=== PATIENT | female | born 1985 | race Caucasian/White ===

== ENCOUNTER 2018-07-30 03:07 | Emergency (ER) | payer OTHER, SELFPAY ==
--- NOTE | 2018-07-30 03:17 | DI.US.S_ITS ---
PROCEDURE: US PELVIC COMPLETE INDICATIONS: POSITIVE TEST; PAIN, BLEEDING TECHNIQUE: Real-time scanning was performed of the pelvic organs, with image documentation. Additional endovaginal scanning was necessary due to incomplete visualization of the adnexal and endometrial structures by transabdominal scanning. COMPARISON: None. FINDINGS: Transabdominal scanning: Limited scanning through the kidneys shows no hydronephrosis. No pathologic free abdominal or pelvic fluid. Endovaginal scanning: Uterus: Uterus is normal in size at 8.3 x 5.1 x 5.8 cm. The endometrium measures 9.2 mm in combined thickness. 1.6 mm anechoic area within the endometrium is noted and shows no internal vascularity. No discrete uterine fibroid is seen. Ovaries: Right ovary measures 2.8 x 2 x 2.1 cm in size. Left ovary measures 3.3 x 1.9 x 2 cm in size. No solid-appearing ovarian lesion. Normal blood flow is seen in bilateral ovaries on color Doppler images. IMPRESSION: 1. Normal appearing bilateral ovaries. 2. 1.6 mm anechoic area within the endometrium and is of unknown significance. Finding could represent tiny amount of fluid versus cyst. Dictated by: Marko Arana M.D. on 07/30/2018 at 10:40 Approved by: Marko Arana M.D. on 07/30/2018 at 10:42
[2018-07-30 03:20] VITALS: BP 165/116; PULSE 94; RESP 18; TEMP 37.2; O2SAT 100
--- NOTE | 2018-07-30 03:25 | ED.PREGNANCY ---
HPI - General Chief complaint: Vaginal Bleeding Stated complaint: 6 weeks , bleeding, pain thinks miscarry Time Seen by Provider: 07/30/18 03:08 Source: patient and family Mode of arrival: ambulatory Limitations: no limitations History of Present Illness HPI Narrative: 33-year-old female nonsmoker, otherwise healthy presents with her for evaluation lower abdominal cramping some vaginal bleeding. Patient is at 6 weeks by dates, with confirmation by [id number] her urine test. She denies any dizziness, weakness or lightheadedness. She has no chest pain or shortness of breath. She does have some lower discomfort and cramping with occasional pain in her left lower quadrant. Yesterday she started with some spotting that was largely old blood but bleeding picked up today as did the cramping in her lower abdomen. Prior to her arrival she bled through 1 liner. MD Complaint: abdominal pain and vaginal bleeding Onset (ago): hour(s) Pain Consistency: intermittent Location: pelvis Severity: moderate Quality: Aching and Cramping Radiation: pelvis Relieving factors: none Exacerbating factors: movement Associated symptoms: denies other symptoms Vaginal discharge: none Vaginal bleeding: heavy Patient : Yes Number of Weeks : 6 OB History - Current : no complications OB History - Previous Pregnancies: no complications care: none Related Data : 1 Para: 0 Home Medications Medication Instructions Recorded Confirmed PNV cmb#95-ferrous fumarate-FA 1 tab PO DAILY 07/30/18 07/30/18 [] Allergies Allergy/AdvReac Type Severity Reaction Status Date / Time No Known Drug Allergies Allergy Verified 07/30/18 03:24 Review of Systems Review of Systems ROS Unobtainable: All systems reviewed & are unremarkable except as noted in HPI and below Constitutional Denies chills, Denies fever(s), Denies lethargy and Denies weakness Eyes Denies change in vision, Denies eye discharge, Denies irritation and Denies loss of vision ENT Ears, Nose, Mouth, and Throat: Denies change in voice, Denies neck pain and Denies sore throat Cardiovascular Denies chest pain, Denies irregular heart rhythm, Denies lightheadedness, Denies palpitations, Denies dyspnea, Denies dyspnea on exertion and Denies orthopnea Respiratory Denies cough, Denies dyspnea, Denies dyspnea on exertion and Denies wheezing Gastrointestinal Gastrointestinal: Denies abdominal pain, Denies change in bowel habits, Denies diarrhea, Denies nausea and Denies vomiting Genitourinary Reports abnormal vaginal bleeding, Denies hematuria, Denies flank pain, Denies urinary incontinence and Denies urinary urgency Musculoskeletal Reports back pain and Denies neck pain Integumentary/Breasts Denies pruritus, Denies erythema, Denies rash and Denies wounds Neurologic Denies confusion, Denies loss of vision and Denies weakness Psychiatric Denies anxiety, Denies confusion, Denies depression, Denies homicidal ideation and Denies suicidal ideation Endocrine Denies palpitations Hematologic/Lymphatic Denies easy bruising Allergic/Immunologic Denies wheezing PMFSH - Past Medical History Medical history: Reports no medical history Surgical history: Reports no surgical history 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 Normocephalic. No temporal or scalp tenderness. EYES: Pupils equal round and reactive. Extraocular motions intact. No scleral icterus. No injection or drainage. ENT: Nose without bleeding, purulent drainage or septal hematoma. Throat without erythema, tonsillar hypertrophy or exudate. Uvula midline. Airway patent. NECK: Trachea midline. No JVD or lymphadenopathy. Supple, nontender, no meningeal signs. CARDIOVASCULAR: Regular rate and rhythm without murmurs, gallops, or rubs. RESPIRATORY: Clear to auscultation. Breath sounds equal bilaterally. No wheezes, rales, or rhonchi. GASTROINTESTINAL: Abdomen soft, non-tender, nondistended. No hepato-splenomegaly, or palpable masses. No guarding. EXTREMITIES: No clubbing, cyanosis, or edema. No joint tenderness, effusion, or edema noted. BACK: Nontender without deformity or crepitance. No flank tenderness. NEURO: AOx3. SKIN: No rash or erythema. Initial Vital Signs Initial Vital Signs: Vital Signs Temperature 99.0 F 07/30/18 03:20 Pulse Rate 94 H 07/30/18 03:20 Respiratory Rate 18 07/30/18 03:20 Blood Pressure 165/116 H 07/30/18 03:20 Pulse Oximetry 100 07/30/18 03:20 Const General: cooperative and well developed Nutritional Appearance: well nourished Orientation: alert, awake, oriented x3 and not confused [facility] Head: normocephalic and atraumatic Ears: external ears normal and TM's normal bilaterally Nose: external nose normal and No nasal discharge Face and sinus: sinuses nontender, face symmetric, no sinus tenderness and No dry mucous membranes Mouth: oral mucosae normal and moist mucous membranes Teeth and gingiva: dentition normal Throat: tonsils normal and uvula midline Eyes General: appearance normal, both eyes and all related structures Eyelids: eyelids normal Conjunctivae: conjunctivae normal Sclera: sclerae normal Pupils: PERRL EOM: EOM intact bilaterally Neck Neck: normal visual inspection, trachea midline, No lymphadenopathy, No midline deformity and No JVD Lymphatic: No lymphedema Chest Chest: normal inspection of the chest Resp Effort & Inspection: normal respiratory effort, able to speak in complete sentences, no respiratory distress and no use of accessory muscles Auscultation: clear to auscultation bilaterally, no rales, no rhonchi and no wheezes Cardio Rate: regular rate Rhythm: regular rhythm Heart Sounds: no click, no gallops, no murmurs and no rubs Pulses: normal peripheral pulses GI Inspection: non-distended Palpation: soft, no hepatosplenomegaly, No guarding, No pulsatile mass and No tender Auscultation: normal bowel sounds Back/Spine/Pelvis Back: No CVA tenderness Cervical Spine: cervical ROM normal and No pain with cervical ROM Thoracic/Lumbar Spine: thoracic and lumbar spine normal to inspection Skin General: no rashes or lesions noted, No jaundice and No petechiae Neuro General: alert, oriented x3, gait normal and no focal motor deficits Speech: speech normal Extrem General: full ROM, no clubbing, cyanosis or edema, no pedal edema and no calf tenderness Psych Appearance: well kempt Mental Status: mental status grossly normal Attitude: cooperative Thought Content: normal and suicidality Judgment: judgment good Procedures Number of Weeks : 6 Course Orders Ordered: ED Orders 07/30/18 03:17 US pelvic complete Stat 07/30/18 03:27 Basic Metabolic Panel Stat Complete Blood Count AUTO DIFF Stat HCG Quantitative Stat Type and Screen Stat Vital Signs - 8 hr 07/30/18 03:20 07/30/18 04:04 Temperature 99.0 F Pulse Rate 94 H 72 Respiratory Rate 18 18 Blood Pressure 165/116 H Blood Pressure [Left Arm] 142/91 H Pulse Oximetry 100 99 MDM - OB/Uterine Contractions Lab Data Result diagrams: 07/30/18 03:27 07/30/18 03:27 Lab Results 07/30/18 07/30/18 07/30/18 Range/Units 03:27 03:27 03:27 WBC 7.4 (4.5-11.0) X10^3/uL RBC 4.94 (4.0-5.2) X10^6/uL Hgb 14.3 (12.0-16.0) g/dL Hct 42.4 (36-46) % MCV 85.8 (80-100) fL MCH 28.8 (26-34) PG MCHC 33.6 (30-36) % RDW 13.9 (11.6-14.8) % Plt Count 171 (150-400) X10^3/uL Neut % (Auto) 56.0 (50-75) % Lymph % (Auto) 27.1 (25-40) % [place] % (Auto) 11.7 (3-14) % Eos % (Auto) 4.3 H (2-4) % Baso % (Auto) 0.9 (0-2) % Neut # (Auto) 4100 (7707-1265) /uL Lymph # (Auto) 2000 (9388-5802) /uL [place] # (Auto) 900 (0-900) /uL Eos # (Auto) 300 (0-450) /uL Baso # (Auto) 100 (0-100) /uL Sodium 140 (137-145) mmol/L Potassium 3.7 (3.4-5.1) mmol/L Chloride 103 (98-107) mmol/L Carbon Dioxide 27 (22-32) mmol/L BUN 11 (7-17) mg/dL Creatinine 0.70 (0.52-1.04) mg/dL Estimated GFR > 60.0 (>60) mL/min BUN/Creatinine Ratio 15.7 (6-22) Glucose 102 H (70-100) mg/dL Calcium 9.5 (8.4-10.2) mg/dL HCG, Quant 32.59 mIU/mL Blood Type O Positive Antibody Screen Negative Point of Care Testing Test Results Negative Urine Dip Bedside Urine Glucose Negative Bedside Urine Bilirubin - Negative Bedside Urine Ketone - Negative Urine Specific [place] 1.015 Bedside Urine Occult Blood +++ Bedside Urine pH 6.0 Bedside Urine Protein - Negative Bedside Urine Urobilinogen - Negative Bedside Urine Nitrite - Negative Bedside Urine Leukocytes - Negative Esterase Discharge Plan Departure Patient Disposition: Home Clinical Impression: Missed Discharge Date/Time: 07/30/18 04:33 Interventions: ED Discharge Assessment Last Done: 07/30/18 04:33 Activity Restrictions/Additional Instructions: *You have been diagnosed with [ vaginal bleeding, likely missed ] *What to do: * continue to take medications as directed *Follow up with your primary care provider in 2-3 days, call for an appointment. Let them know you were seen in the Emergency Department and that we ask that you be seen in follow up *Return to ER if you should have any new, worsening or concerning symptoms, such as [increased pain, bleeding sufficient to saturate a pad in less than 1 hour for multiple hours, any other bothersome symptoms ] Prescriptions: No Action PNV cmb#95-ferrous fumarate-FA [] 28 mg iron- 800 mcg Tablet 1 tab PO DAILY RF: 0
--- NOTE | 2018-07-30 03:28 | ED_ITS ---
HPI - General Chief complaint: Vaginal Bleeding Stated complaint: 6 weeks , bleeding, pain thinks miscarry Time Seen by Provider: 07/30/18 03:08 Source: patient and family Mode of arrival: ambulatory Limitations: no limitations History of Present Illness HPI Narrative: 33-year-old female nonsmoker, otherwise healthy presents with her for evaluation lower abdominal cramping some vaginal bleeding. Patient is at 6 weeks by dates, with confirmation by [id number] her urine test. She denies any dizziness, weakness or lightheadedness. She has no chest pain or shortness of breath. She does have some lower discomfort and cramping with occasional pain in her left lower quadrant. Yesterday she started with some spotting that was largely old blood but bleeding picked up today as did the cramping in her lower abdomen. Prior to her arrival she bled through 1 liner. MD Complaint: abdominal pain and vaginal bleeding Onset (ago): hour(s) Pain Consistency: intermittent Location: pelvis Severity: moderate Quality: Aching and Cramping Radiation: pelvis Relieving factors: none Exacerbating factors: movement Associated symptoms: denies other symptoms Vaginal discharge: none Vaginal bleeding: heavy Patient : Yes Number of Weeks : 6 OB History - Current : no complications OB History - Previous Pregnancies: no complications care: none Related Data : 1 Para: 0 Home Medications Medication Instructions Recorded Confirmed PNV cmb#95-ferrous fumarate-FA 1 tab PO DAILY 07/30/18 07/30/18 [] Allergies Allergy/AdvReac Type Severity Reaction Status Date / Time No Known Drug Allergies Allergy Verified 07/30/18 03:24 Review of Systems Review of Systems ROS Unobtainable: All systems reviewed & are unremarkable except as noted in HPI and below Constitutional Denies chills, Denies fever(s), Denies lethargy and Denies weakness Eyes Denies change in vision, Denies eye discharge, Denies irritation and Denies loss of vision ENT Ears, Nose, Mouth, and Throat: Denies change in voice, Denies neck pain and Denies sore throat Cardiovascular Denies chest pain, Denies irregular heart rhythm, Denies lightheadedness, Denies palpitations, Denies dyspnea, Denies dyspnea on exertion and Denies orthopnea Respiratory Denies cough, Denies dyspnea, Denies dyspnea on exertion and Denies wheezing Gastrointestinal Gastrointestinal: Denies abdominal pain, Denies change in bowel habits, Denies diarrhea, Denies nausea and Denies vomiting Genitourinary Reports abnormal vaginal bleeding, Denies hematuria, Denies flank pain, Denies urinary incontinence and Denies urinary urgency Musculoskeletal Reports back pain and Denies neck pain Integumentary/Breasts Denies pruritus, Denies erythema, Denies rash and Denies wounds Neurologic Denies confusion, Denies loss of vision and Denies weakness Psychiatric Denies anxiety, Denies confusion, Denies depression, Denies homicidal ideation and Denies suicidal ideation Endocrine Denies palpitations Hematologic/Lymphatic Denies easy bruising Allergic/Immunologic Denies wheezing PMFSH - Past Medical History Medical history: Reports no medical history Surgical history: Reports no surgical history 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 Normocephalic. No temporal or scalp tenderness. EYES: Pupils equal round and reactive. Extraocular motions intact. No scleral icterus. No injection or drainage. ENT: Nose without bleeding, purulent drainage or septal hematoma. Throat without erythema, tonsillar hypertrophy or exudate. Uvula midline. Airway patent. NECK: Trachea midline. No JVD or lymphadenopathy. Supple, nontender, no meningeal signs. CARDIOVASCULAR: Regular rate and rhythm without murmurs, gallops, or rubs. RESPIRATORY: Clear to auscultation. Breath sounds equal bilaterally. No wheezes, rales, or rhonchi. GASTROINTESTINAL: Abdomen soft, non-tender, nondistended. No hepato- splenomegaly, or palpable masses. No guarding. EXTREMITIES: No clubbing, cyanosis, or edema. No joint tenderness, effusion, or edema noted. BACK: Nontender without deformity or crepitance. No flank tenderness. NEURO: AOx3. SKIN: No rash or erythema. Initial Vital Signs Initial Vital Signs: Vital Signs Temperature 99.0 F 07/30/18 03:20 Pulse Rate 94 H 07/30/18 03:20 Respiratory Rate 18 07/30/18 03:20 Blood Pressure 165/116 H 07/30/18 03:20 Pulse Oximetry 100 07/30/18 03:20 Const General: cooperative and well developed Nutritional Appearance: well nourished Orientation: alert, awake, oriented x3 and not confused [facility] Head: normocephalic and atraumatic Ears: external ears normal and TM's normal bilaterally Nose: external nose normal and No nasal discharge Face and sinus: sinuses nontender, face symmetric, no sinus tenderness and No dry mucous membranes Mouth: oral mucosae normal and moist mucous membranes Teeth and gingiva: dentition normal Throat: tonsils normal and uvula midline Eyes General: appearance normal, both eyes and all related structures Eyelids: eyelids normal Conjunctivae: conjunctivae normal Sclera: sclerae normal Pupils: PERRL EOM: EOM intact bilaterally Neck Neck: normal visual inspection, trachea midline, No lymphadenopathy, No midline deformity and No JVD Lymphatic: No lymphedema Chest Chest: normal inspection of the chest Resp Effort & Inspection: normal respiratory effort, able to speak in complete sentences, no respiratory distress and no use of accessory muscles Auscultation: clear to auscultation bilaterally, no rales, no rhonchi and no wheezes Cardio Rate: regular rate Rhythm: regular rhythm Heart Sounds: no click, no gallops, no murmurs and no rubs Pulses: normal peripheral pulses GI Inspection: non-distended Palpation: soft, no hepatosplenomegaly, No guarding, No pulsatile mass and No tender Auscultation: normal bowel sounds Back/Spine/Pelvis Back: No CVA tenderness Cervical Spine: cervical ROM normal and No pain with cervical ROM Thoracic/Lumbar Spine: thoracic and lumbar spine normal to inspection Skin General: no rashes or lesions noted, No jaundice and No petechiae Neuro General: alert, oriented x3, gait normal and no focal motor deficits Speech: speech normal Extrem General: full ROM, no clubbing, cyanosis or edema, no pedal edema and no calf tenderness Psych Appearance: well kempt Mental Status: mental status grossly normal Attitude: cooperative Thought Content: normal and suicidality Judgment: judgment good Procedures Number of Weeks : 6 Course Orders Ordered: ED Orders 07/30/18 03:17 US pelvic complete Stat 07/30/18 03:27 Basic Metabolic Panel Stat Complete Blood Count AUTO DIFF Stat HCG Quantitative Stat Type and Screen Stat Vital Signs - 8 hr 07/30/18 03:20 07/30/18 04:04 Temperature 99.0 F Pulse Rate 94 H 72 Respiratory Rate 18 18 Blood Pressure 165/116 H Blood Pressure [Left Arm] 142/91 H Pulse Oximetry 100 99 MDM - OB/Uterine Contractions Lab Data Result diagrams: 07/30/18 03:27 07/30/18 03:27 Lab Results 07/30/18 07/30/18 07/30/18 Range/Units 03:27 03:27 03:27 WBC 7.4 (4.5-11.0) X10^3/uL RBC 4.94 (4.0-5.2) X10^6/uL Hgb 14.3 (12.0-16.0) g/dL Hct 42.4 (36-46) % MCV 85.8 (80-100) fL MCH 28.8 (26-34) PG MCHC 33.6 (30-36) % RDW 13.9 (11.6-14.8) % Plt Count 171 (150-400) X10^3/uL Neut % (Auto) 56.0 (50-75) % Lymph % (Auto) 27.1 (25-40) % [place] % (Auto) 11.7 (3-14) % Eos % (Auto) 4.3 H (2-4) % Baso % (Auto) 0.9 (0-2) % Neut # (Auto) 4100 (9653-4098) /uL Lymph # (Auto) 2000 (3177-9646) /uL [place] # (Auto) 900 (0-900) /uL Eos # (Auto) 300 (0-450) /uL Baso # (Auto) 100 (0-100) /uL Sodium 140 (137-145) mmol/L Potassium 3.7 (3.4-5.1) mmol/L Chloride 103 (98-107) mmol/L Carbon Dioxide 27 (22-32) mmol/L BUN 11 (7-17) mg/dL Creatinine 0.70 (0.52-1.04) mg/dL Estimated GFR > 60.0 (>60) mL/min BUN/Creatinine Ratio 15.7 (6-22) Glucose 102 H (70-100) mg/dL Calcium 9.5 (8.4-10.2) mg/dL HCG, Quant 32.59 mIU/mL Blood Type O Positive Antibody Screen Negative Point of Care Testing Test Results Negative Urine Dip Bedside Urine Glucose Negative Bedside Urine Bilirubin - Negative Bedside Urine Ketone - Negative Urine Specific [place] 1.015 Bedside Urine Occult Blood +++ Bedside Urine pH 6.0 Bedside Urine Protein - Negative Bedside Urine Urobilinogen - Negative Bedside Urine Nitrite - Negative Bedside Urine Leukocytes - Negative Esterase Discharge Plan Departure Patient Disposition: Home Clinical Impression: Missed Discharge Date/Time: 07/30/18 04:33 Interventions: ED Discharge Assessment Last Done: 07/30/18 04:33 Activity Restrictions/Additional Instructions: *You have been diagnosed with [ vaginal bleeding, likely missed ] *What to do: * continue to take medications as directed *Follow up with your primary care provider in 2-3 days, call for an appointment. Let them know you were seen in the Emergency Department and that we ask that you be seen in follow up *Return to ER if you should have any new, worsening or concerning symptoms, such as [increased pain, bleeding sufficient to saturate a pad in less than 1 hour for multiple hours, any other bothersome symptoms ] Prescriptions: No Action PNV cmb#95-ferrous fumarate-FA [] 28 mg iron- 800 mcg Tablet 1 tab PO DAILY RF: 0
[2018-07-30 03:39] LABS: Add Manual Diff / Slide Review NO; Basophils Absolute Auto 100 /uL (0-100); Basophils Percent Auto 0.9 % (0-2); Eosinophils Absolute Auto 300 /uL (0-450); Eosinophils Percent Auto 4.3 % (2-4); Hematocrit 42.4 % (36-46); Hemoglobin 14.3 g/dL (12.0-16.0); Lymphocytes Absolute Auto 2000 /uL (1100-4500); Lymphocytes Percent Auto 27.1 % (25-40); Mean Corpuscular HGB Conc 33.6 % (30-36); Mean Corpuscular Hemoglobin 28.8 PG (26-34); Mean Corpuscular Volume 85.8 fL (80-100); Monocytes Absolute Auto 900 /uL (0-900); Monocytes Percent Auto 11.7 % (3-14); Neutrophils Absolute Auto 4100 /uL (1500-7000); Platelet Count 171 X10^3/uL (150-400); Red Blood Cell Count 4.94 X10^6/uL (4.0-5.2); Red Cell Distribution Width 13.9 % (11.6-14.8); White Blood Cell Count 7.4 X10^3/uL (4.5-11.0)
[2018-07-30 03:51] LABS: BUN Creatinine Ratio 15.7 (6-22); Blood Urea Nitrogen 11 mg/dL (7-17); Calcium 9.5 mg/dL (8.4-10.2); Carbon Dioxide 27 mmol/L (22-32); Chloride 103 mmol/L (98-107); Estimated Glomerular Filt Rate > 60.0 mL/min (>60); Glucose 102 mg/dL (70-100); HEMOLYSIS < 15 (0-50); Potassium 3.7 mmol/L (3.4-5.1); Sodium 140 mmol/L (137-145)
[2018-07-30 04:04] VITALS: BP 142/91; PULSE 72; RESP 18; O2SAT 99
[2018-07-30 04:08] LABS: HCG Quantitative /Beta subunit 32.59 mIU/mL
== END 2018-07-30 04:33 | disposition home or self-care (01) ==
PROVIDERS: Emergency Provider Emergency Medicine
DX: O02.1 Missed abortion (principal)
CPT/HCPCS: 36415; 76830; 76856; 80048; 81003; 81025; 84702; 85025; 86850; 86900; 86901; 99282; 99284

== ENCOUNTER → 2018-08-10 16:49 | Outpatient (CLI) | payer OTHER, SELFPAY ==
--- NOTE | 2018-08-10 | DI.RAD.S_ITS ---
PROCEDURE: XR SHOULDER LT MIN 2V INDICATIONS: L SHOULDER PAIN TECHNIQUE: 3 views of the shoulder were acquired. COMPARISON: None. FINDINGS: Bones: No fractures or dislocations. No suspicious bony lesions. Visualized ribs appear intact. Soft tissues: No suspicious soft tissue calcifications. IMPRESSION: Unremarkable radiographic examination of left shoulder. Dictated by: Marko Arana M.D. on 08/10/2018 at 17:24 Approved by: Marko Arana M.D. on 08/10/2018 at 17:25
== END ==
PROVIDERS: PCP Nurse Practitioner Family; Visit Provider Nurse Practitioner Family
DX: M25.512 Pain in left shoulder (principal)
CPT/HCPCS: 73030

== ENCOUNTER 2018-11-09 12:14 | Emergency (ER) | payer OTHER, SELFPAY ==
[2018-11-09] VITALS (9 sets, daily range): BP systolic 105–163; BP diastolic 55–101; PULSE 70–98; RESP 20; TEMP 36.5; O2SAT 99–100
--- NOTE | 2018-11-09 13:04 | ED.FEMALEGU ---
HPI - Female Genitourinary <RUPAL Rodgers - Last Filed: 11/09/18 16:40> General Chief complaint: Urogenital-Female Stated complaint: UNABLE TO URINATE Time Seen by Provider: 11/09/18 12:17 Source: patient Mode of arrival: ambulatory Limitations: no limitations History of Present Illness HPI Narrative: The patient is a 33-year-old female who is 13 weeks who presents with a chief complaint of urinary difficulties. She states she is urinating this morning approximately 10:00 a.m. when she stopped mid stream and was unable to further urinate. She has had some urgency and frequency with a slight amount of dysuria over the past few days. She denies any fevers nausea vomiting or diarrhea. She denies any flank pain. She states that she has been on a able to urinate for several hours at this point time. She presents requesting a straight cath. She denies any abdominal pain other than bladder pressure. She denies any vaginal discharge, concern of sexually transmitted infections or vaginal bleeding. Related Data Home Medications Medication Instructions Recorded Confirmed PNV cmb#95-ferrous fumarate-FA 1 tab PO DAILY 07/30/18 11/09/18 [] Allergies Allergy/AdvReac Type Severity Reaction Status Date / Time No Known Drug Allergies Allergy Verified 07/30/18 03:24 Review of Systems <RUPAL Rodgers - Last Filed: 11/09/18 16:40> Review of Systems GENERAL: Denies chills, fatigue, malaise, fever, sweats. HEENT: Denies sinus pain, ear pain, sore throat, difficulty swallowing, dizziness. RESPIRATORY: Denies dyspnea, cough, wheezing, hemoptysis, sputum. CARDIOVASCULAR: Denies chest pain, palpitations, orthopnea, edema, GASTROINTESTINAL: Denies nausea, vomiting, abdominal pain, diarrhea, constipation, melena. : See HPI MUSCULOSKELETAL: denies weakness, joint pain, or bony pain SKIN: Denies rash, skin lesions, or other NEUROLOGIC: Denies weakness, headache, numbness, change in speech, confusion, seizures, incoordination. PSYCHIATRIC: No concerning psychosocial issues. 12 point review of systems is negative except for those stated above PFSH <RUPAL Rodgers - Last Filed: 11/09/18 16:40> Social History Smoking Status: Never smoker Social History Smoking Status: Never smoker Exam <RUPAL Rodgers - Last Filed: 11/09/18 16:40> Narrative Exam Narrative: GENERAL: This is a well-nourished, well-developed patient, appears anxious and uncomfortable. HEAD: Atraumatic. Normocephalic. No temporal or scalp tenderness. EYES: Pupils equal round and reactive. Extraocular motions intact. No scleral icterus. No injection or drainage. ENT: Nose without bleeding, purulent drainage or septal hematoma. Throat without erythema, tonsillar hypertrophy or exudate. Uvula midline. Airway patent. NECK: Trachea midline. No JVD or lymphadenopathy. Supple, nontender, no meningeal signs. CARDIOVASCULAR: Regular rate and rhythm without murmurs, gallops, or rubs. RESPIRATORY: Clear to auscultation. Breath sounds equal bilaterally. No wheezes, rales, or rhonchi. No cough. No increased respiratory effort. No accessory muscle use. GASTROINTESTINAL: Abdomen soft, non-tender, nondistended. No hepato-splenomegaly, or palpable masses. No guarding. EXTREMITIES: No clubbing, cyanosis, or edema. No joint tenderness, effusion, or edema noted. BACK: Nontender without deformity or crepitance. No flank tenderness. NEURO: AOx3. SKIN: No rash or erythema. Initial Vital Signs Initial Vital Signs: Vital Signs Temperature 97.7 F 11/09/18 12:20 Pulse Rate 98 H 11/09/18 12:20 Respiratory Rate 11/09/18 12:20 Blood Pressure 163/101 H 11/09/18 12:20 Pulse Oximetry 100 11/09/18 12:20 <Barbie Hatfield MD - Last Filed: 11/09/18 19:57> Initial Vital Signs Initial Vital Signs: Vital Signs Temperature 97.7 F 11/09/18 12:20 Pulse Rate 98 H 11/09/18 12:20 Respiratory Rate 11/09/18 12:20 Blood Pressure 163/101 H 11/09/18 12:20 Pulse Oximetry 100 11/09/18 12:20 Course <BRADFORD Rodgers-BC - Last Filed: 11/09/18 16:40> Course Narrative: I checked on the patient several times throughout her stay in the year. Orders Ordered: ED Orders 11/09/18 13:03 Urinalysis and Microscopic Stat Urine Culture Stat 11/09/18 13:48 US OB <= 14 weeks fetus Stat US renal complete Stat 11/09/18 14:00 Complete Blood Count AUTO DIFF Stat Comprehensive Metabolic Panel Stat HCG Quantitative Stat Vital Signs - 8 hr 11/09/18 12:20 11/09/18 12:30 11/09/18 13:00 Temperature 97.7 F Pulse Rate 98 H 70 73 Respiratory Rate 20 Blood Pressure 163/101 H Blood Pressure [Right Arm] 121/70 120/67 Pulse Oximetry 100 100 100 11/09/18 13:30 11/09/18 14:00 11/09/18 14:30 Temperature Pulse Rate 73 Respiratory Rate Blood Pressure Blood Pressure [Right Arm] 105/55 L 128/68 123/58 L Pulse Oximetry 99 11/09/18 15:00 11/09/18 15:30 11/09/18 16:30 Temperature Pulse Rate 75 79 86 Respiratory Rate Blood Pressure Blood Pressure [Right Arm] 119/63 131/68 121/78 Pulse Oximetry <Barbie Hatfield MD - Last Filed: 11/09/18 19:57> Orders Ordered: ED Orders 11/09/18 13:03 Urinalysis and Microscopic Stat Urine Culture Stat 11/09/18 13:48 US OB <= 14 weeks fetus Stat US renal complete Stat 11/09/18 14:00 Complete Blood Count AUTO DIFF Stat Comprehensive Metabolic Panel Stat HCG Quantitative Stat Vital Signs - 8 hr 11/09/18 12:20 11/09/18 12:30 11/09/18 13:00 Temperature 97.7 F Pulse Rate 98 H 70 73 Respiratory Rate 20 Blood Pressure 163/101 H Blood Pressure [Right Arm] 121/70 120/67 Pulse Oximetry 100 100 100 11/09/18 13:30 11/09/18 14:00 11/09/18 14:30 Temperature Pulse Rate 73 Respiratory Rate Blood Pressure Blood Pressure [Right Arm] 105/55 L 128/68 123/58 L Pulse Oximetry 99 11/09/18 15:00 11/09/18 15:30 11/09/18 16:30 Temperature Pulse Rate 75 79 86 Respiratory Rate Blood Pressure Blood Pressure [Right Arm] 119/63 131/68 121/78 Pulse Oximetry MDM - Female Genitourinary <KENAN RodgersP- - Last Filed: 11/09/18 16:40> Lab Data Result diagrams: 11/09/18 14:00 11/09/18 14:00 Lab Results 11/09/18 11/09/18 11/09/18 Range/Units 13:03 14:00 14:00 WBC 7.8 (4.5-11.0) X10^3/uL RBC 4.41 (4.0-5.2) X10^6/uL Hgb 12.9 (12.0-16.0) g/dL Hct 37.3 (36-46) % MCV 84.5 (80-100) fL MCH 29.1 (26-34) PG MCHC 34.5 (30-36) % RDW 14.0 (11.6-14.8) % Plt Count 172 (150-400) X10^3/uL Neut % (Auto) 74.1 (50-75) % Lymph % (Auto) 16.4 L (25-40) % [place] % (Auto) 7.9 (3-14) % Eos % (Auto) 1.0 L (2-4) % Baso % (Auto) 0.6 (0-2) % Neut # (Auto) 5800 (9242-8689) /uL Lymph # (Auto) 1300 (3506-3779) /uL [place] # (Auto) 600 (0-900) /uL Eos # (Auto) 100 (0-450) /uL Baso # (Auto) 0 (0-100) /uL Sodium 135 L (137-145) mmol/L Potassium 3.9 (3.4-5.1) mmol/L Chloride 104 (98-107) mmol/L Carbon Dioxide 22 (22-32) mmol/L BUN 6 L (7-17) mg/dL Creatinine 0.50 L (0.52-1.04) mg/dL Estimated GFR > 60.0 (>60) mL/min BUN/Creatinine Ratio 12.0 (6-22) Glucose 80 (70-100) mg/dL Calcium 9.4 (8.4-10.2) mg/dL Total Bilirubin 0.6 (0.2-1.3) mg/dL AST 18 (14-36) IU/L ALT 12 (9-52) IU/L Alkaline Phosphatase 46 (38-126) U/L Total Protein 7.0 (6.3-8.2) g/dL Albumin 4.4 (3.5-5.0) g/dL Globulin 2.6 (1.7-4.1) g/dL Albumin/Globulin Ratio 1.7 (1.0-2.8) HCG, Quant 277156 mIU/mL Urine Color Yellow Urine Appearance Clear Urine pH 7.0 (4.5-8.0) Ur Specific [place] 1.010 (1.000-1.035) Urine Protein Negative (Negative) Urine Glucose (UA) Negative (Negative) g/dL Urine Ketones Negative (NEGATIVE) Urine Occult Blood Negative (Negative) Urine Nitrate Negative (Negative) Urine Bilirubin Negative (NEGATIVE) Urine Urobilinogen 0.2 (0.2) E.U./dL Ur Leukocyte Esterase Negative (NEGATIVE) Urine RBC None seen (0-5/HPF) Urine WBC None seen (0-5/HPF) Urine Bacteria None seen (None) Ur Culture Indicated? Cult not indicated Micro UA Comment Microscopic normal Imaging Data us: Radiologist's impression: Annia Singer 33 F 1985 [place] [address] Ultrasound Report Signed Patient: Annia SingerMR#: [id number] : 1985Acct:[id number] Age/Sex: te of Service: 11/09/18 Loc: ED Accession Number: [id number] Procedure: US OB <= 14 weeks fetus Ordering Provider: Kimberlyn Pierson PROCEDURE: US OB <= 14 WEEKS FETUS INDICATIONS: ABD PAIN, 13 WEEKS PREG OUTSIDE/PRIOR DATING DATA: Last menstrual period (LMP): 08/09/2018. LMP-based estimated date of delivery (TERE): 05/16/2019. First dating scan (date and location): 11/09/2018. Estimated date of delivery (TERE) from first dating scan: 05/08/2019. TECHNIQUE: Real-time transabdominal scanning was performed of the fetus and maternal pelvic organs, with image documentation. COMPARISON: [facility], , US PELVIC COMPLETE, 07/30/2018, 3:45. FINDINGS: Embryo: There is single living IUP measuring 14 weeks one day with an estimated date of delivery 05/08/2019. cardiac activity is present with the heart rate 152 bpm. Measurement variability in dating: +/- 4 weeks by LMP, +/- 7 days by mean sac diameter (use before 6 weeks gestation if crown-rump length not able to be measured), +/- 5 days by crown-rump length (up to 8 weeks 6 days gestation), +/- 7 days by crown-rump length (up to 13 weeks 6 days gestation). Maternal organs: Ovaries are not visualized. Limited images through the kidneys demonstrate no hydronephrosis. IMPRESSION: 1. A single living intrauterine gestation with an estimated gestational age of 14 weeks 1 day corresponding to ultrasound TERE 05/08/2019. 2. No abnormalities seen on ultrasound. Dictated by: Rina Dupree M.D. on 11/09/2018 at 15:34 Approved by: Rina Dupree M.D. on 11/09/2018 at 15:39 renal us: Radiologist's impression: [place] [address] Ultrasound Report Signed Patient: Annia Singer#: [id number] : 1985Acct:[id number] Age/Sex: te of Service: 11/09/18 Loc: ED Accession Number: [id number] Procedure: US renal complete Ordering Provider: Kimberlyn Pierson PROCEDURE: US RENAL COMPLETE INDICATIONS: URINE RETENTION PREG/FLANK PAIN TECHNIQUE: Real-time scanning was performed of the kidneys and bladder, with image documentation. COMPARISON: None. FINDINGS: Kidneys: Kidneys are normal in size. Right kidney measures 10.3 cm long; left kidney measures 10.6 cm long. Right renal cortical thickness is 1.3 cm; left renal cortical thickness is 1.3 cm. Renal cortical echotexture is normal. Mild to moderate hydronephrosis is present. No visible intrarenal or ureteral calculi. No left hydronephrosis. No suspicious solid mass lesions. Bladder: Pre-void bladder volume is not obtained. A Henderson catheter balloon is visible in the urinary bladder. Miscellaneous: No free pelvic fluid. No intrauterine is noted with heart rate of 162 beats per minute. IMPRESSION: 1. Mild to moderate right hydronephrosis without visible calcification in the urinary system. 2. No left hydronephrosis. 3. Decompressed urinary bladder a Henderson catheter. 4. A viable intrauterine . Dictated by: Cherrie Guzman M.D. on 11/09/2018 at 14:29 Approved by: Cherrie Guzman M.D. on 11/09/2018 at 14:31 MDM Narrative Medical decision making narrative: The patient is a 33-year-old female who presents with chief complaint of urinary difficulties. Bladder scan was completed with 900 cc in her bladder. A Henderson was inserted and she had 2000 cc of return. A urine was sent for culture, but urinalysis micro appear to be clean. ultrasound came back without abnormalities and heart rate of 152. Renal ultrasound shows some hydronephrosis on the right side, possibly due to urinary retention. 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 They recommend leaving a Henderson catheter in and plan on having her see Dr. Xin Villela tomorrow and [place] him. The patient states she is comfortable managing her Henderson catheter at home, as she has a urology nurse. I discussed at length coming back to the ER for any acute concerns. Urine cultures pending at this time. Patient states understanding of plan and has no questions or concerns. <Barbie Hatfield MD - Last Filed: 11/09/18 19:57> Lab Data Lab Results 11/09/18 11/09/18 11/09/18 Range/Units 13:03 14:00 14:00 WBC 7.8 (4.5-11.0) X10^3/uL RBC 4.41 (4.0-5.2) X10^6/uL Hgb 12.9 (12.0-16.0) g/dL Hct 37.3 (36-46) % MCV 84.5 (80-100) fL MCH 29.1 (26-34) PG MCHC 34.5 (30-36) % RDW 14.0 (11.6-14.8) % Plt Count 172 (150-400) X10^3/uL Neut % (Auto) 74.1 (50-75) % Lymph % (Auto) 16.4 L (25-40) % [place] % (Auto) 7.9 (3-14) % Eos % (Auto) 1.0 L (2-4) % Baso % (Auto) 0.6 (0-2) % Neut # (Auto) 5800 (0153-6620) /uL Lymph # (Auto) 1300 (3065-2871) /uL [place] # (Auto) 600 (0-900) /uL Eos # (Auto) 100 (0-450) /uL Baso # (Auto) 0 (0-100) /uL Sodium 135 L (137-145) mmol/L Potassium 3.9 (3.4-5.1) mmol/L Chloride 104 (98-107) mmol/L Carbon Dioxide 22 (22-32) mmol/L BUN 6 L (7-17) mg/dL Creatinine 0.50 L (0.52-1.04) mg/dL Estimated GFR > 60.0 (>60) mL/min BUN/Creatinine Ratio 12.0 (6-22) Glucose 80 (70-100) mg/dL Calcium 9.4 (8.4-10.2) mg/dL Total Bilirubin 0.6 (0.2-1.3) mg/dL AST 18 (14-36) IU/L ALT 12 (9-52) IU/L Alkaline Phosphatase 46 (38-126) U/L Total Protein 7.0 (6.3-8.2) g/dL Albumin 4.4 (3.5-5.0) g/dL Globulin 2.6 (1.7-4.1) g/dL Albumin/Globulin Ratio 1.7 (1.0-2.8) HCG, Quant 092142 mIU/mL Urine Color Yellow Urine Appearance Clear Urine pH 7.0 (4.5-8.0) Ur Specific [place] 1.010 (1.000-1.035) Urine Protein Negative (Negative) Urine Glucose (UA) Negative (Negative) g/dL Urine Ketones Negative (NEGATIVE) Urine Occult Blood Negative (Negative) Urine Nitrate Negative (Negative) Urine Bilirubin Negative (NEGATIVE) Urine Urobilinogen 0.2 (0.2) E.U./dL Ur Leukocyte Esterase Negative (NEGATIVE) Urine RBC None seen (0-5/HPF) Urine WBC None seen (0-5/HPF) Urine Bacteria None seen (None) Ur Culture Indicated? Cult not indicated Micro UA Comment Microscopic normal Discharge Plan Departure Patient Disposition: Home Clinical Impression: Acute urinary retention Discharge Date/Time: 11/09/18 16:55 Interventions: ED Discharge Assessment Last Done: 11/09/18 16:54 Instructions: How to Care for Your Henderson Catheter -- Female, DI for Urinary Retention in Women Activity Restrictions/Additional Instructions: Please call [facility] for follow-up tomorrow. The nurse product merchandiser would like you to see Dr Xin Villela. Please come back to the emergency department for any acute concerns. Urine culture is pending at this time. If there is anything suspicious, your receive a phone call with the results in 48-72 hours. Prescriptions: No Action PNV cmb#95-ferrous fumarate-FA [] 28 mg iron- 800 mcg Tablet 1 tab PO DAILY RF: 0 Referrals: Jaskaran Nielsen ARNP [Primary Care Provider] -
[2018-11-09 13:08] LABS: Bacteria Urine None Seen; RBC Urine None Seen (0-5/HPF); WBC Urine None Seen (0-5/HPF)
--- NOTE | 2018-11-09 13:08 | ED_ITS ---
HPI - Female Genitourinary <RUPAL Rodgers - Last Filed: 11/09/18 16:40> General Chief complaint: Urogenital-Female Stated complaint: UNABLE TO URINATE Time Seen by Provider: 11/09/18 12:17 Source: patient Mode of arrival: ambulatory Limitations: no limitations History of Present Illness HPI Narrative: The patient is a 33-year-old female who is 13 weeks who presents with a chief complaint of urinary difficulties. She states she is urinating this morning approximately 10:00 a.m. when she stopped mid stream and was unable to further urinate. She has had some urgency and frequency with a slight amount of dysuria over the past few days. She denies any fevers nausea vomiting or diarrhea. She denies any flank pain. She states that she has been on a able to urinate for several hours at this point time. She presents requesting a straight cath. She denies any abdominal pain other than bladder pressure. She denies any vaginal discharge, concern of sexually transmitted infections or vaginal bleeding. Related Data Home Medications Medication Instructions Recorded Confirmed PNV cmb#95-ferrous fumarate-FA 1 tab PO DAILY 07/30/18 11/09/18 [] Allergies Allergy/AdvReac Type Severity Reaction Status Date / Time No Known Drug Allergies Allergy Verified 07/30/18 03:24 Review of Systems <RUPAL Rodgers - Last Filed: 11/09/18 16:40> Review of Systems GENERAL: Denies chills, fatigue, malaise, fever, sweats. HEENT: Denies sinus pain, ear pain, sore throat, difficulty swallowing, dizziness. RESPIRATORY: Denies dyspnea, cough, wheezing, hemoptysis, sputum. CARDIOVASCULAR: Denies chest pain, palpitations, orthopnea, edema, GASTROINTESTINAL: Denies nausea, vomiting, abdominal pain, diarrhea, constipation, melena. : See HPI MUSCULOSKELETAL: denies weakness, joint pain, or bony pain SKIN: Denies rash, skin lesions, or other NEUROLOGIC: Denies weakness, headache, numbness, change in speech, confusion, seizures, incoordination. PSYCHIATRIC: No concerning psychosocial issues. 12 point review of systems is negative except for those stated above PFSH <RUPAL Rodgers - Last Filed: 11/09/18 16:40> Social History Smoking Status: Never smoker Social History Smoking Status: Never smoker Exam <RUPAL Rodgers - Last Filed: 11/09/18 16:40> Narrative Exam Narrative: GENERAL: This is a well-nourished, well-developed patient, appears anxious and uncomfortable. HEAD: Atraumatic. Normocephalic. No temporal or scalp tenderness. EYES: Pupils equal round and reactive. Extraocular motions intact. No scleral icterus. No injection or drainage. ENT: Nose without bleeding, purulent drainage or septal hematoma. Throat without erythema, tonsillar hypertrophy or exudate. Uvula midline. Airway patent. NECK: Trachea midline. No JVD or lymphadenopathy. Supple, nontender, no meningeal signs. CARDIOVASCULAR: Regular rate and rhythm without murmurs, gallops, or rubs. RESPIRATORY: Clear to auscultation. Breath sounds equal bilaterally. No wheezes, rales, or rhonchi. No cough. No increased respiratory effort. No accessory muscle use. GASTROINTESTINAL: Abdomen soft, non-tender, nondistended. No hepato-sp lenomegaly, or palpable masses. No guarding. EXTREMITIES: No clubbing, cyanosis, or edema. No joint tenderness, effusion, or edema noted. BACK: Nontender without deformity or crepitance. No flank tenderness. NEURO: AOx3. SKIN: No rash or erythema. Initial Vital Signs Initial Vital Signs: Vital Signs Temperature 97.7 F 11/09/18 12:20 Pulse Rate 98 H 11/09/18 12:20 Respiratory Rate 11/09/18 12:20 Blood Pressure 163/101 H 11/09/18 12:20 Pulse Oximetry 100 11/09/18 12:20 <Barbie Hatfield MD - Last Filed: 11/09/18 19:57> Initial Vital Signs Initial Vital Signs: Vital Signs Temperature 97.7 F 11/09/18 12:20 Pulse Rate 98 H 11/09/18 12:20 Respiratory Rate 11/09/18 12:20 Blood Pressure 163/101 H 11/09/18 12:20 Pulse Oximetry 100 11/09/18 12:20 Course <KENAN RodgersP-BC - Last Filed: 11/09/18 16:40> Course Narrative: I checked on the patient several times throughout her stay in the year. Orders Ordered: ED Orders 11/09/18 13:03 Urinalysis and Microscopic Stat Urine Culture Stat 11/09/18 13:48 US OB <= 14 weeks fetus Stat US renal complete Stat 11/09/18 14:00 Complete Blood Count AUTO DIFF Stat Comprehensive Metabolic Panel Stat HCG Quantitative Stat Vital Signs - 8 hr 11/09/18 12:20 11/09/18 12:30 11/09/18 13:00 Temperature 97.7 F Pulse Rate 98 H 70 73 Respiratory Rate 20 Blood Pressure 163/101 H Blood Pressure [Right Arm] 121/70 120/67 Pulse Oximetry 100 100 100 11/09/18 13:30 11/09/18 14:00 11/09/18 14:30 Temperature Pulse Rate 73 Respiratory Rate Blood Pressure Blood Pressure [Right Arm] 105/55 L 128/68 123/58 L Pulse Oximetry 99 11/09/18 15:00 11/09/18 15:30 11/09/18 16:30 Temperature Pulse Rate 75 79 86 Respiratory Rate Blood Pressure Blood Pressure [Right Arm] 119/63 131/68 121/78 Pulse Oximetry <Barbie Hatfield MD - Last Filed: 11/09/18 19:57> Orders Ordered: ED Orders 11/09/18 13:03 Urinalysis and Microscopic Stat Urine Culture Stat 11/09/18 13:48 US OB <= 14 weeks fetus Stat US renal complete Stat 11/09/18 14:00 Complete Blood Count AUTO DIFF Stat Comprehensive Metabolic Panel Stat HCG Quantitative Stat Vital Signs - 8 hr 11/09/18 12:20 11/09/18 12:30 11/09/18 13:00 Temperature 97.7 F Pulse Rate 98 H 70 73 Respiratory Rate 20 Blood Pressure 163/101 H Blood Pressure [Right Arm] 121/70 120/67 Pulse Oximetry 100 100 100 11/09/18 13:30 11/09/18 14:00 11/09/18 14:30 Temperature Pulse Rate 73 Respiratory Rate Blood Pressure Blood Pressure [Right Arm] 105/55 L 128/68 123/58 L Pulse Oximetry 99 11/09/18 15:00 11/09/18 15:30 11/09/18 16:30 Temperature Pulse Rate 75 79 86 Respiratory Rate Blood Pressure Blood Pressure [Right Arm] 119/63 131/68 121/78 Pulse Oximetry MDM - Female Genitourinary <KENAN RodgersP- - Last Filed: 11/09/18 16:40> Lab Data Result diagrams: 11/09/18 14:00 11/09/18 14:00 Lab Results 11/09/18 11/09/18 11/09/18 Range/Units 13:03 14:00 14:00 WBC 7.8 (4.5-11.0) X10^3/uL RBC 4.41 (4.0-5.2) X10^6/uL Hgb 12.9 (12.0-16.0) g/dL Hct 37.3 (36-46) % MCV 84.5 (80-100) fL MCH 29.1 (26-34) PG MCHC 34.5 (30-36) % RDW 14.0 (11.6-14.8) % Plt Count 172 (150-400) X10^3/uL Neut % (Auto) 74.1 (50-75) % Lymph % (Auto) 16.4 L (25-40) % [place] % (Auto) 7.9 (3-14) % Eos % (Auto) 1.0 L (2-4) % Baso % (Auto) 0.6 (0-2) % Neut # (Auto) 5800 (6225-3651) /uL Lymph # (Auto) 1300 (4687-8320) /uL [place] # (Auto) 600 (0-900) /uL Eos # (Auto) 100 (0-450) /uL Baso # (Auto) 0 (0-100) /uL Sodium 135 L (137-145) mmol/L Potassium 3.9 (3.4-5.1) mmol/L Chloride 104 (98-107) mmol/L Carbon Dioxide 22 (22-32) mmol/L BUN 6 L (7-17) mg/dL Creatinine 0.50 L (0.52-1.04) mg/dL Estimated GFR > 60.0 (>60) mL/min BUN/Creatinine Ratio 12.0 (6-22) Glucose 80 (70-100) mg/dL Calcium 9.4 (8.4-10.2) mg/dL Total Bilirubin 0.6 (0.2-1.3) mg/dL AST 18 (14-36) IU/L ALT 12 (9-52) IU/L Alkaline Phosphatase 46 (38-126) U/L Total Protein 7.0 (6.3-8.2) g/dL Albumin 4.4 (3.5-5.0) g/dL Globulin 2.6 (1.7-4.1) g/dL Albumin/Globulin Ratio 1.7 (1.0-2.8) HCG, Quant 169767 mIU/mL Urine Color Yellow Urine Appearance Clear Urine pH 7.0 (4.5-8.0) Ur Specific [place] 1.010 (1.000-1.035) Urine Protein Negative (Negative) Urine Glucose (UA) Negative (Negative) g/dL Urine Ketones Negative (NEGATIVE) Urine Occult Blood Negative (Negative) Urine Nitrate Negative (Negative) Urine Bilirubin Negative (NEGATIVE) Urine Urobilinogen 0.2 (0.2) E.U./dL Ur Leukocyte Esterase Negative (NEGATIVE) Urine RBC None seen (0-5/HPF) Urine WBC None seen (0-5/HPF) Urine Bacteria None seen (None) Ur Culture Indicated? Cult not indicated Micro UA Comment Microscopic normal Imaging Data us: Radiologist's impression: Annia Singer 33 F 1985 [place] [address] Ultrasound Report Signed Patient: Annia SingerMR#: [id number] : 1985Acct:[id number] Age/Sex: te of Service: 11/09/18 Loc: ED Accession Number: [id number] Procedure: US OB <= 14 weeks fetus Ordering Provider: Kimberlyn Pierson PROCEDURE: US OB <= 14 WEEKS FETUS INDICATIONS: ABD PAIN, 13 WEEKS PREG OUTSIDE/PRIOR DATING DATA: Last menstrual period (LMP): 08/09/2018. LMP-based estimated date of delivery (TERE): 05/16/2019. First dating scan (date and location): 11/09/2018. Estimated date of delivery (TERE) from first dating scan: 05/08/2019. TECHNIQUE: Real-time transabdominal scanning was performed of the fetus and maternal pelvic organs, with image documentation. COMPARISON: [facility], , US PELVIC COMPLETE, 07/30/2018, 3:45. FINDINGS: Embryo: There is single living IUP measuring 14 weeks one day with an estimated date of delivery 05/08/2019. cardiac activity is present with the heart rate 152 bpm. Measurement variability in dating: +/- 4 weeks by LMP, +/- 7 days by mean sac diameter (use before 6 weeks gestation if crown-rump length not able to be measured), +/- 5 days by crown-rump length (up to 8 weeks 6 days gestation), +/- 7 days by crown-rump length (up to 13 weeks 6 days gestation). Maternal organs: Ovaries are not visualized. Limited images through the kidneys demonstrate no hydronephrosis. IMPRESSION: 1. A single living intrauterine gestation with an estimated gestational age of 14 weeks 1 day corresponding to ultrasound TERE 05/08/2019. 2. No abnormalities seen on ultrasound. Dictated by: Rina Dupree M.D. on 11/09/2018 at 15:34 Approved by: Rina Dupree M.D. on 11/09/2018 at 15:39 renal us: Radiologist's impression: [place] [address] Ultrasound Report Signed Patient: Annia Singer#: [id number] : 1985Acct:[id number] Age/Sex: te of Service: 11/09/18 Loc: ED Accession Number: [id number] Procedure: US renal complete Ordering Provider: Kimberlyn Pierson PROCEDURE: US RENAL COMPLETE INDICATIONS: URINE RETENTION PREG/FLANK PAIN TECHNIQUE: Real-time scanning was performed of the kidneys and bladder, with image documentation. COMPARISON: None. FINDINGS: Kidneys: Kidneys are normal in size. Right kidney measures 10.3 cm long; left kidney measures 10.6 cm long. Right renal cortical thickness is 1.3 cm; left renal cortical thickness is 1.3 cm. Renal cortical echotexture is normal. Mild to moderate hydronephrosis is present. No visible intrarenal or ureteral calculi. No left hydronephrosis. No suspicious solid mass lesions. Bladder: Pre-void bladder volume is not obtained. A Henderson catheter balloon is visible in the urinary bladder. Miscellaneous: No free pelvic fluid. No intrauterine is noted with heart rate of 162 beats per minute. IMPRESSION: 1. Mild to moderate right hydronephrosis without visible calcification in the urinary system. 2. No left hydronephrosis. 3. Decompressed urinary bladder a Henderson catheter. 4. A viable intrauterine . Dictated by: Cherrie Guzman M.D. on 11/09/2018 at 14:29 Approved by: Cherrie Guzman M.D. on 11/09/2018 at 14:31 MDM Narrative Medical decision making narrative: The patient is a 33-year-old female who pr esents with chief complaint of urinary difficulties. Bladder scan was completed with 900 cc in her bladder. A Henderson was inserted and she had 2000 cc of return. A urine was sent for culture, but urinalysis micro appear to be clean. ultrasound came back without abnormalities and heart rate of 152. Renal ultrasound shows some hydronephrosis on the right side, possibly due to urinary retention. 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 They recommend leaving a Henderson catheter in and plan on having her see Dr. Xin Villela tomorrow and [place]alling him. The patient states she is comfortable managing her Henderson catheter at home, as she has a urology nurse. I discussed at length coming back to the ER for any acute concerns. Urine cultures pending at this time. Patient states understanding of plan and has no questions or concerns. <Barbie Hatfield MD - Last Filed: 11/09/18 19:57> Lab Data Lab Results 11/09/18 11/09/18 11/09/18 Range/Units 13:03 14:00 14:00 WBC 7.8 (4.5-11.0) X10^3/uL RBC 4.41 (4.0-5.2) X10^6/uL Hgb 12.9 (12.0-16.0) g/dL Hct 37.3 (36-46) % MCV 84.5 (80-100) fL MCH 29.1 (26-34) PG MCHC 34.5 (30-36) % RDW 14.0 (11.6-14.8) % Plt Count 172 (150-400) X10^3/uL Neut % (Auto) 74.1 (50-75) % Lymph % (Auto) 16.4 L (25-40) % [place] % (Auto) 7.9 (3-14) % Eos % (Auto) 1.0 L (2-4) % Baso % (Auto) 0.6 (0-2) % Neut # (Auto) 5800 (1826-1318) /uL Lymph # (Auto) 1300 (3357-9748) /uL [place] # (Auto) 600 (0-900) /uL Eos # (Auto) 100 (0-450) /uL Baso # (Auto) 0 (0-100) /uL Sodium 135 L (137-145) mmol/L Potassium 3.9 (3.4-5.1) mmol/L Chloride 104 (98-107) mmol/L Carbon Dioxide 22 (22-32) mmol/L BUN 6 L (7-17) mg/dL Creatinine 0.50 L (0.52-1.04) mg/dL Estimated GFR > 60.0 (>60) mL/min BUN/Creatinine Ratio 12.0 (6-22) Glucose 80 (70-100) mg/dL Calcium 9.4 (8.4-10.2) mg/dL Total Bilirubin 0.6 (0.2-1.3) mg/dL AST 18 (14-36) IU/L ALT 12 (9-52) IU/L Alkaline Phosphatase 46 (38-126) U/L Total Protein 7.0 (6.3-8.2) g/dL Albumin 4.4 (3.5-5.0) g/dL Globulin 2.6 (1.7-4.1) g/dL Albumin/Globulin Ratio 1.7 (1.0-2.8) HCG, Quant 120763 mIU/mL Urine Color Yellow Urine Appearance Clear Urine pH 7.0 (4.5-8.0) Ur Specific [place] 1.010 (1.000-1.035) Urine Protein Negative (Negative) Urine Glucose (UA) Negative (Negative) g/dL Urine Ketones Negative (NEGATIVE) Urine Occult Blood Negative (Negative) Urine Nitrate Negative (Negative) Urine Bilirubin Negative (NEGATIVE) Urine Urobilinogen 0.2 (0.2) E.U./dL Ur Leukocyte Esterase Negative (NEGATIVE) Urine RBC None seen (0-5/HPF) Urine WBC None seen (0-5/HPF) Urine Bacteria None seen (None) Ur Culture Indicated? Cult not indicated Micro UA Comment Microscopic normal Discharge Plan Departure Patient Disposition: Home Clinical Impression: Acute urinary retention Discharge Date/Time: 11/09/18 16:55 Interventions: ED Discharge Assessment Last Done: 11/09/18 16:54 Instructions: How to Care for Your Henderson Catheter -- Female, DI for Urinary Retention in Women Activity Restrictions/Additional Instructions: Please call [facility] for follow-up tomorrow. The nurse plant electrical engineer would like you to see Dr Xin Villela. Please come back to the emergency department for any acute concerns. Urine culture is pending at this time. If there is anything suspicious, your receive a phone call with the results in 48-72 hours. Prescriptions: No Action PNV cmb#95-ferrous fumarate-FA [] 28 mg iron- 800 mcg Tablet 1 tab PO DAILY RF: 0 Referrals: Jaskaran Nielsen ARNP [Primary Care Provider] -
[2018-11-09 13:09] LABS: Appearance Urine UA CLEAR; Bilirubin Urine UA NEGATIVE (NEGATIVE); Color Urine UA YELLOW; Glucose Urine UA NEGATIVE (Negative); Ketones Urine UA NEGATIVE (NEGATIVE); Leukocyte Esterase Urine UA NEGATIVE (NEGATIVE); Nitrite Urine UA NEGATIVE (Negative); Occult Blood Urine UA NEGATIVE (Negative); Protein Urine UA NEGATIVE (Negative); Urobilinogen Urine UA 0.2 E.U./dL (0.2)
[2018-11-09 13:18] LABS: Urine Comments Microscopic Normal
[2018-11-09 13:19] LABS: Culture Indicated Urine Cult Not Indicated
--- NOTE | 2018-11-09 13:48 | DI.US.S_ITS ---
PROCEDURE: US OB <= 14 WEEKS FETUS INDICATIONS: ABD PAIN, 13 WEEKS PREG OUTSIDE/PRIOR DATING DATA: Last menstrual period (LMP): 08/09/2018. LMP-based estimated date of delivery (TERE): 05/16/2019. First dating scan (date and location): 11/09/2018. Estimated date of delivery (TERE) from first dating scan: 05/08/2019. TECHNIQUE: Real-time transabdominal scanning was performed of the fetus and maternal pelvic organs, with image documentation. COMPARISON: [facility], , US PELVIC COMPLETE, 07/30/2018, 3:45. FINDINGS: Embryo: There is single living IUP measuring 14 weeks one day with an estimated date of delivery 05/08/2019. cardiac activity is present with the heart rate 152 bpm. Measurement variability in dating: +/- 4 weeks by LMP, +/- 7 days by mean sac diameter (use before 6 weeks gestation if crown-rump length not able to be measured), +/- 5 days by crown-rump length (up to 8 weeks 6 days gestation), +/- 7 days by crown-rump length (up to 13 weeks 6 days gestation). Maternal organs: Ovaries are not visualized. Limited images through the kidneys demonstrate no hydronephrosis. IMPRESSION: 1. A single living intrauterine gestation with an estimated gestational age of 14 weeks 1 day corresponding to ultrasound TERE 05/08/2019. 2. No abnormalities seen on ultrasound. Dictated by: Rina Dupree M.D. on 11/09/2018 at 15:34 Approved by: Rina Dupree M.D. on 11/09/2018 at 15:39
--- NOTE | 2018-11-09 13:48 | DI.US.S_ITS ---
PROCEDURE: US RENAL COMPLETE INDICATIONS: URINE RETENTION PREG/FLANK PAIN TECHNIQUE: Real-time scanning was performed of the kidneys and bladder, with image documentation. COMPARISON: None. FINDINGS: Kidneys: Kidneys are normal in size. Right kidney measures 10.3 cm long; left kidney measures 10.6 cm long. Right renal cortical thickness is 1.3 cm; left renal cortical thickness is 1.3 cm. Renal cortical echotexture is normal. Mild to moderate hydronephrosis is present. No visible intrarenal or ureteral calculi. No left hydronephrosis. No suspicious solid mass lesions. Bladder: Pre-void bladder volume is not obtained. A Henderson catheter balloon is visible in the urinary bladder. Miscellaneous: No free pelvic fluid. No intrauterine is noted with heart rate of 162 beats per minute. IMPRESSION: 1. Mild to moderate right hydronephrosis without visible calcification in the urinary system. 2. No left hydronephrosis. 3. Decompressed urinary bladder a Henderson catheter. 4. A viable intrauterine . Dictated by: Cherrie Guzman M.D. on 11/09/2018 at 14:29 Approved by: Cherrie Guzman M.D. on 11/09/2018 at 14:31
[2018-11-09 14:08] LABS: Add Manual Diff / Slide Review NO; Basophils Absolute Auto 0 /uL (0-100); Basophils Percent Auto 0.6 % (0-2); Eosinophils Absolute Auto 100 /uL (0-450); Hematocrit 37.3 % (36-46); Hemoglobin 12.9 g/dL (12.0-16.0); Lymphocytes Absolute Auto 1300 /uL (1100-4500); Lymphocytes Percent Auto 16.4 % (25-40); Mean Corpuscular HGB Conc 34.5 % (30-36); Mean Corpuscular Hemoglobin 29.1 PG (26-34); Mean Corpuscular Volume 84.5 fL (80-100); Monocytes Absolute Auto 600 /uL (0-900); Monocytes Percent Auto 7.9 % (3-14); Neutrophils Absolute Auto 5800 /uL (1500-7000); Neutrophils Percent Auto 74.1 % (50-75); Platelet Count 172 X10^3/uL (150-400); Red Blood Cell Count 4.41 X10^6/uL (4.0-5.2); White Blood Cell Count 7.8 X10^3/uL (4.5-11.0)
[2018-11-09 14:21] LABS: Alanine Aminotransferase 12 IU/L (9-52); Albumin 4.4 g/dL (3.5-5.0); Albumin Globulin Ratio 1.7 (1.0-2.8); Alkaline Phosphatase 46 U/L (38-126); Aspartate Aminotransferase 18 IU/L (14-36); Bilirubin Total 0.6 mg/dL (0.2-1.3); Blood Urea Nitrogen 6 mg/dL (7-17); Calcium 9.4 mg/dL (8.4-10.2); Carbon Dioxide 22 mmol/L (22-32); Chloride 104 mmol/L (98-107); Estimated Glomerular Filt Rate > 60.0 mL/min (>60); Globulin 2.6 g/dL (1.7-4.1); Glucose 80 mg/dL (70-100); HEMOLYSIS < 15 (0-50); Potassium 3.9 mmol/L (3.4-5.1); Sodium 135 mmol/L (137-145)
[2018-11-09 15:02] LABS: HCG Quantitative /Beta subunit 102960 mIU/mL
== END 2018-11-09 16:55 | disposition home or self-care (01) ==
PROVIDERS: Emergency Provider Nurse Practitioner Family; PCP Nurse Practitioner Family
DX: R33.8 Other retention of urine (principal)
CPT/HCPCS: 36415; 51798; 76770; 76801; 80053; 81001; 84702; 85025; 87086; 99284; 99285